=== PATIENT | female | born 1940 | race Caucasian/White ===

== ENCOUNTER 2018-11-27 02:54 | Inpatient (IN) | payer MEDICARE, BC ==
[2018-11-27] MEDS ORDERED: ACETAMINOPHEN 325 MG TAB PO (04:30)
[2018-11-27 05:32] LABS: CHOL/HDL RATIO 3.3 RATIO; HDL CHOLESTEROL 50 mg/dl (33-92); LDL CHOLESTEROL,CALCULATED 99 mg/dl; TRIGLYCERIDES 95 mg/dl (0-149)
[2018-11-27 05:32] LABS: CHOLESTEROL 168 mg/dl (100-200)
[2018-11-27 05:44] LABS: TROPONIN-I < 0.012 ng/ml (0.000-0.120)
[2018-11-27] MEDS: ASPIRIN (EC) 81 MG TAB PO (08:04)
[2018-11-27 11:34] LABS: TROPONIN-I < 0.012 ng/ml (0.000-0.120)
[2018-11-27] MEDS: SOD CHLORIDE 0.9% 1,000 ML IV (12:55)
[2018-11-27] MEDS ORDERED: ONDANSETRON 4 MG INJ IV (13:00)
[2018-11-27 13:27] LABS: ADD MAN DIFF? NO
[2018-11-27 13:29] LABS: BASOPHIL # 0.1 10^3/ul (0.0-0.1); BASOPHILS % 0.8 % (0.0-2.0); EOSINOPHILS # 0.2 10^3/ul (0.0-0.5); EOSINOPHILS % 2.7 % (0.0-7.0); HEMATOCRIT 34.3 % (37.0-47.0); HEMOGLOBIN 11.2 g/dl (12.0-16.0); LYMPHOCYTES # 2.7 10^3/ul (0.8-2.9); MEAN CORPUSCULAR HEMOGLOBIN 32.4 pg (29.0-33.0); MEAN CORPUSCULAR HGB CONC 32.7 g/dl (32.0-37.0); MEAN CORPUSCULAR VOLUME 99.1 fl (82.0-101.0); MEAN PLATELET VOLUME 10.4 fl (7.4-10.4); MONOCYTE # 0.4 10^3/ul (0.3-0.9); MONOCYTES % 6.7 % (0.0-11.0); NEUTROPHILS % 47.5 % (39.0-77.0); PLATELET COUNT 225 10^3/UL (140-415); RED BLOOD COUNT 3.46 10^6/ul (4.20-5.40); RED CELL DISTRIBUTION WIDTH 11.2 % (11.5-14.5)
[2018-11-27 13:29] LABS: WHITE BLOOD COUNT 6.4 10^3/ul (4.8-10.8)
[2018-11-27 13:48] LABS: AADO2 Arterial 22.9 mmHg (7.0-24.0); Allen Test ACCEPTAB; Arterial Base Excess 1.6 mmol/L (-3.0-3); Arterial Blood Gas Oxygen Sat 94.2 mmHG (95.0-100.0); Arterial COHb 0.3 % (0.0-3.0); Arterial Fraction of Oxyhgb 93.9 % (93.0-99.0); Arterial HCO3 26.9 mmol/L (22.0-26.0); Arterial MetHb 0 % (0.0-1.5); Arterial pCO2 45.3 mmhg (35-45); MODE ROOM AIR; Site Right Radial
[2018-11-27 13:51] LABS: ALANINE AMINOTRANSFERASE 17 IU/L (13-69); ALBUMIN 3.3 g/dl (3.3-4.9); ALBUMIN/GLOBULIN RATIO 1.13; ALKALINE PHOSPHATASE 74 IU/L (42-121); ANION GAP 7 (5-13); ASPARTATE AMINO TRANSFERASE 24 IU/L (15-46); BILIRUBIN,INDIRECT 0.2 mg/dl (0-1.1); BILIRUBIN,TOTAL 0.2 mg/dl (0.2-1.3); BLOOD UREA NITROGEN 16 mg/dl (7-20); CALCIUM 8.4 mg/dl (8.4-10.2); CARBON DIOXIDE 27 mmol/L (21-31); CHLORIDE 109 mmol/L (97-110); CREATININE 0.67 mg/dl (0.44-1.00); GLUCOSE 100 mg/dl (70-220); POTASSIUM 4.2 mmol/L (3.5-5.1); SODIUM 143 mmol/L (135-144); TOTAL PROTEIN 6.2 g/dl (6.1-8.1)
[2018-11-27 14:01] LABS: AMMONIA 14 umol/l (9-30)
[2018-11-27 14:31] LABS: THYROID STIMULATING HORMONE 0.233 MIU/L (0.465-4.680)
[2018-11-27 15:05] LABS: FOLATE 13.5 ng/ml (2.8-20.0)
[2018-11-27 16:00] LABS: ADD UMIC YES; UR ASCORBIC ACID NEGATIVE (NEGATIVE); UR BILIRUBIN (Dip) NEGATIVE (NEGATIVE); UR BLOOD (Dip) 1+ mg/dL (NEGATIVE); UR CLARITY CLEAR (CLEAR); UR COLOR STRAW (YELLOW); UR GLUCOSE (Dip) NEGATIVE (NEGATIVE); UR KETONES (Dip) NEGATIVE (NEGATIVE); UR LEUKOCYTE ESTERASE (Dip) NEGATIVE Leu/ul (NEGATIVE); UR NITRITE (Dip) NEGATIVE (NEGATIVE); UR RBC 2 /HPF (0-5); UR SPECIFIC GRAVITY (Dip) 1.003 (1.003-1.030); UR TOTAL PROTEIN (Dip) NEGATIVE (NEGATIVE); UR UROBILINOGEN (Dip) NEGATIVE (NEGATIVE); UR WBC 1 /HPF (0-5)
[2018-11-27 17:58] LABS: TROPONIN-I < 0.012 ng/ml (0.000-0.120)
[2018-11-28] MEDS: ASPIRIN (EC) 81 MG TAB PO (08:40)
[2018-11-28 12:16] LABS: FREE T3 3.52 pg/ml (2.77-5.27)
[2018-11-28 12:17] LABS: FREE T4 (FREE THYROXINE) 1.05 ng/dl (0.85-1.93)
[2018-11-28] MEDS: SOD CHLORIDE 0.9% 1,000 ML IV (13:00)
== END 2018-11-28 19:20 | disposition left against medical advice (07) | DRG 642 ==
LOC: 6WM 02:54
PROVIDERS: Internal Medicine Nephrology
DX: E88.81 Metabolic syndrome and other insulin resistance (principal); R41.82 Altered mental status, unspecified; R94.6 Abnormal results of thyroid function studies; R56.9 Unspecified convulsions; F41.0 Panic disorder [episodic paroxysmal anxiety]; Z87.81 Personal history of (healed) traumatic fracture; Z79.82 Long term (current) use of aspirin
CPT/HCPCS: 36600; 80053; 80061; 81001; 82140; 82607; 82746; 82803; 84439; 84443; 84481; 84484; 85025; 93306; 93880; 95819

== ENCOUNTER 2018-12-05 15:46 | Emergency (ER) | payer MEDICARE, BC | END 2018-12-05 19:37 | disposition home or self-care (01) | LOC: FTE 19:37 | DX: S70.01XA Contusion of right hip, initial encounter (principal); W18.39XA Other fall on same level, initial encounter; Y92.9 Unspecified place or not applicable | CPT/HCPCS: 73510; 73550; 76536; 99284-25 ==